=== PATIENT | female | born 1995 | race American Indian/Alaskan Native ===

== ENCOUNTER 2016-10-07 12:31 | Emergency (ER) | payer SELFPAY ==
[2016-10-07 16:43] LABS: Urine Drugs of Abuse Note Disclamer
--- NOTE | 2016-10-07 16:44 | Emergency Department Report ---
HPI - General Chief Complaint: Medical Clearance Time Seen by Provider: 10/07/16 16:21 - HPI HPI: This is a 21-year-old Afro-[place]ian female who presents to the emergency department for a psychiatric evaluation. The patient does not want to talk to myself or any emergency staff. She says that she was dropped off by a friend. She would not tell me as to why she came into the emergency department. She eventually said that she hears voices but will not mention as to what these voices are saying. There is a note through triage that the family had brought her in because she was stating that she did not want to live anymore and was having bizarre behavior at home. Family says that there is no prior mental health history in this patient. ED Past Medical Hx - Past Medical History Previous Medical History?: No - Surgical History Past Surgical History?: No ED Review of Systems ROS: Stated complaint: MH EVAL Other details as noted in HPI Comment: All other systems reviewed and negative Constitutional: denies: chills, fever Eyes: denies: eye pain, eye discharge, vision change ENT: denies: ear pain, throat pain Respiratory: denies: cough, shortness of breath, wheezing Cardiovascular: denies: chest pain, palpitations Gastrointestinal: denies: abdominal pain, nausea, diarrhea Genitourinary: denies: urgency, dysuria, discharge Musculoskeletal: denies: back pain, joint swelling, arthralgia Skin: denies: rash, lesions Neurological: denies: headache, weakness, paresthesias Psychiatric: auditory hallucinations. denies: visual hallucinations Physical Exam - Physical Exam Vital Signs: Vital Signs 10/07/16 13:04 Temperature 97.3 F L Pulse Rate 105 H Respiratory 20 Rate Blood Pressure 138/87 [Left] O2 Sat by Pulse 99 Oximetry Physical Exam: GENERAL: The patient is well-developed well-nourished. HEENT: Normocephalic. Atraumatic. Extraocular motions are intact. Patient has moist mucous membranes. Pupils equal reactive to light bilaterally. NECK: Supple. Trachea is midline. CHEST/LUNGS: Clear to auscultation. There is no respiratory distress noted. HEART/CARDIOVASCULAR: Regular. There is no tachycardia. There is no gallop rub or murmur. ABDOMEN: Abdomen is soft, nontender. Patient has normal bowel sounds. There is no abdominal distention. SKIN: Skin is warm and dry. NEURO: The patient is awake, alert. The patient is cooperative. The patient has no focal neurologic deficits. No slurred speech. Normal gait. MUSCULOSKELETAL: There is no tenderness or deformity. There is no limitation range of motion. There is no evidence of acute injury. PSYCH: The patient is not very forthcoming with information. However she also appears slightly labile as she will start becoming tearful and then go back to a flat affect. ED Course Vital Signs 10/07/16 13:04 Temperature 97.3 F L Pulse Rate 105 H Respiratory 20 Rate Blood Pressure 138/87 [Left] O2 Sat by Pulse 99 Oximetry ED Medical Decision Making - Lab Data Result diagrams: 10/07/16 16:22 10/07/16 16:22 - Medical Decision Making 21-year-old female presents to the emergency department with some record that she has been acting bizarre at home with family and that she made claims of suicidal ideations. The patient will not refute this here but she is also not very forthcoming. She keeps saying that she wants to go and that she wants her friend, who she says dropped her off, brought back to her in her room. Patient' s labs are unremarkable other than positive marijuana on urine drug screen. She is not . No signs of infection. No electrolyte abnormalities, renal sufficiency or glucose abnormalities. While the patient has not directly admitted suicidal ideations here, she does not appear to be well psychiatrically. She is emotionally labile and did admit to auditory hallucinations. Since there is no previous history of any psychiatric diagnosis , and given the auditory hallucinations, within this age range, it is possible that the patient is a new onset schizophrenia. However she will remain a 1013 as there is concern for suicidal ideations and psychosis. She is medically clear for psychiatric placement. - Differential Diagnosis schizophrenia, bipolar disorder, schizoaffective, depression, substance abu Critical Care Time: No Critical care attestation.: If time is entered above; I have spent that time in minutes in the direct care of this critically ill patient, excluding procedure time. ED Disposition Clinical Impression: Suicidal ideations, Auditory hallucinations Disposition: [id number]/TX-[id number] PSY HOSP/PSY UNIT Is pt being admited?: No Condition: Stable Referrals: PRIMARY CARE [Primary Care Provider] - 3-5 Days Time of Disposition: 17:59
[2016-10-07 16:52] LABS: Bacteria,Urine 2+ /HPF (Negative); Bilirubin,Urine NEG (Negative); Blood,Urine LG (Negative); Ketones,Urine 20 mg/dL (Negative); Leukocyte Esterase,Urine NEG (Negative); Mucus,Urine 3+ /HPF; Nitrite,Urine NEG (Negative)
[2016-10-07 17:29] LABS: Basophils % (Auto) 0.8 % (0.0-1.8); Eosinophils % (Auto) 0.3 % (0.0-4.3); Hematocrit 42.4 % (30.3-42.9); Hemoglobin 14.4 gm/dl (10.1-14.3); Mean Corpuscular HGB Conc 34 % (30-34); Mean Corpuscular Hemoglobin 28 pg (28-32); Mean Corpuscular Volume 84 fl (79-97); Platelet Count 228 K/mm3 (140-440); Red Blood Count 5.05 M/mm3 (3.65-5.03); Red Cell Distribution Width 12.8 % (13.2-15.2); White Blood Count 7.7 K/mm3 (4.5-11.0)
[2016-10-07 17:37] LABS: Anion Gap 19 mmol/L; Blood Urea Nitrogen 12 mg/dL (7-17); Calcium 9.8 mg/dL (8.4-10.2); Carbon Dioxide 24 mmol/L (22-30); Chloride 101.4 mmol/L (98-107); Glucose 118 mg/dL (65-100); Potassium 3.5 mmol/L (3.6-5.0); Sodium 141 mmol/L (137-145)
[2016-10-08] MEDS ORDERED: HALDOL ONE (10:02)
[2016-10-08] MEDS ORDERED: ATIVAN ONE (10:02)
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
[2016-10-08] MEDS ORDERED: HALDOL IM PRN (11:09)
[2016-10-08] MEDS ORDERED: ATIVAN IM PRN (11:10)
[2016-10-08] MEDS: ATIVAN PO SCH (22:14)
[2016-10-08] MEDS: HALDOL PO SCH (22:15)
--- NOTE | 2016-10-09 13:23 | Progress Note ---
Subjective - Reason for Consult Reason for consult: psychosis Mental Status Exam - Vital signs Last Vital Signs Temp 99.2 F 10/09/16 08:49 Pulse 103 H 10/09/16 08:49 Resp 16 10/09/16 08:51 BP 105/60 10/09/16 08:49 Pulse Ox 100 10/09/16 08:51 Assessment and Plan On clinical examination, patient appears more organized in her verbal discussion today. She still fairly sedated but less anxious and paranoid. She still looking for her mother and it's unclear if she is still receiving her sensing that she is in the ER. 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 Nevertheless, we are being prudent and continuing the patient on antipsychotic medications due to the presentation in the ER. No EPS noted on examination. Patient was apprised of the risks and benefits of treatment. MENTAL STATUS EXAM: General Appearance: casually dressed, less distressed today Sensorium/Consciousness: alert and responding to external stimuli Eye Contact: limited Attitude / Behavior: guarded Psychomotor & Musculoskeletal Activity: Psychomotor retardation Mood: Anxious Affect: constricted Speech / Language: normal Thought Processes: more organized Thought Content: no SI, no HI Perception: doesn't appears to be responding to internal stimuli Orientation: person, place, situation, time Judgment What would you do if you smelled smoke in a crowded movie theater?: improving Insight: limited Intelligence Vocabulary, general fund of knowledge, educational level : Average Capacity of ADLs: Independent INITIAL PLAN OF CARE AND TREATMENT GOALS: Continue haloperidol 5 mg by mouth daily at bedtime, patient refuses by mouth may offer haloperidol 5 mg IM Continue Ativan 1 mg at bedtime by mouth, patient refuses may offer Ativan 1 mg IM along with Haldol at bedtime
[2016-10-09] MEDS: HALDOL PO SCH (22:10)
[2016-10-09] MEDS: ATIVAN PO SCH (22:13)
[2016-10-10 00:39] VITALS: BP 110/72
--- NOTE | 2016-10-10 12:24 | Emergency Department Report ---
Blank Doc - Documentation Documentation: Patient has been reevaluated by psychiatry. Form 1013 has been rescinded by psychiatry. Recommendation is to discharge the patient home at this time. Patient will be discharged home to follow up with her psychiatrist.
--- NOTE | 2016-10-10 13:51 | Progress Note ---
Subjective - Reason for Consult Reason for consult: evaluate to rescind 1013 Mental Status Exam - Vital signs Last Vital Signs Temp 99.3 F 10/09/16 22:00 Pulse 94 H 10/09/16 22:00 Resp 18 10/09/16 22:00 BP 110/72 10/09/16 22:00 Pulse Ox 98 10/09/16 22:00 Assessment and Plan On clinical examination, patient appears more organized in her verbal discussion today. Today she is even more organized than she was yesterday. She is much less paranoid and no longer exhibiting symptoms of psychosis. Patient is not having auditory or visual hallucinations. Patient does note that she's had a conversation with her mother and that they are willing to pick her up from the hospital. At the current time has been adherent to her medication regimens without any side effects. Given the drastic improvement in her psychosis, she was no longer unable to take care of her ADLs. Consequently , she no longer meets criteria for involuntary psychiatric hold through the 1013 process. The 1013 and be removed and the patient will be recommended to follow with outpatient services upon discharge from the ER. MENTAL STATUS EXAM: General Appearance: casually dressed, less distressed today Sensorium/Consciousness: alert and responding to external stimuli Eye Contact: limited Attitude / Behavior: guarded Psychomotor & Musculoskeletal Activity: mild psychomotor retardation Mood: Anxious Affect: constricted Speech / Language: normal Thought Processes: more organized Thought Content: no SI, no HI Perception: doesn't appears to be responding to internal stimuli, no AVH Orientation: person, place, situation, time Judgment What would you do if you smelled smoke in a crowded movie theater?: improving Insight: improving Intelligence Vocabulary, general fund of knowledge, educational level : Average Capacity of ADLs: Independent INITIAL PLAN OF CARE AND TREATMENT GOALS: Continue haloperidol 5 mg by mouth daily at bedtime upon discharge Continue Ativan 1 mg at bedtime by mouth upon discharge Rescind 1013 Follow up with [facility] her county [place] residence
== END 2016-10-10 13:06 | disposition home or self-care (01) ==
LOC: ED 12:31 → EEVIPCON 12:31 → ED 10-10 13:06
DX: R44.0 Auditory hallucinations (principal); R45.851 Suicidal ideations
CPT/HCPCS: 36415; 80048; 80307; 81001; 84703; 85025; 96372; 99284; G0480; J1630; J2060; 80320